=== PATIENT | female | born 1985 | race Caucasian/White ===

== ENCOUNTER 2017-05-11 11:03 | Emergency (ER) | payer MEDICAID ==
[~2017-05-11] VITALS: Ht 172.7 cm; Wt 106.6 kg
--- NOTE | 2017-05-11 11:56 | NUR ---
Patient discharged to home in stable conditon. Written and verbal after care instructions given. Patient verbalizes understanding of instructions.
[2017-05-11 12:00] VITALS: BP 125/78
== END 2017-05-11 12:01 | disposition home or self-care (01) ==
LOC: EDBD 11:03 → ER 11:03
DX: J02.8 Acute pharyngitis due to other specified organisms (principal); B97.89 Other viral agents as the cause of diseases classified elsewhere
CPT/HCPCS: A4663

== ENCOUNTER 2018-09-25 19:17 | Emergency (ER) | payer MEDICAID ==
[~2018-09-25] VITALS: Ht 172.7 cm; Wt 108.9 kg
[2018-09-25] MEDS ORDERED: IV NORMAL SALINE 1000 ML BAG IV ONE (19:45)
--- NOTE | 2018-09-25 19:55 | NUR ---
Patient ambulated with stable gait. A/Ox4. Speech is clear, speaks in complete sentences. No neuro deficits noted. Patient came for c/o abd pain x4 days and urinary retention. Denies any episodes of vomiting but does report having nausea.
--- NOTE | 2018-09-25 20:03 | NUR ---
patient transported down to CT in stable condition.
[2018-09-25 20:05] LABS: BASOPHILS % (AUTO) 0.2 % (0.0-2.0); EOSINOPHILS # (AUTO) 0.1 K/uL (0.0-0.7); EOSINOPHILS % (AUTO) 1.6 % (0.0-7.0); HEMATOCRIT 37.3 % (31.2-41.9); HEMOGLOBIN 12.1 g/dL (10.9-14.3); LYMPHOCYTES # (AUTO) 2.2 K/uL (20.0-40.0); LYMPHOCYTES % (AUTO) 27.5 % (20.5-51.5); MEAN CORPUSCULAR HGB CONC 33 g/dL (32.3-35.6); MEAN CORPUSCULAR VOLUME 73.7 fL (75.5-95.3); MONOCYTES # (AUTO) 0.6 K/uL (2.0-10.0); MONOCYTES % (AUTO) 7.4 % (0.0-11.0); NEUTROPHILS % (AUTO) 63.3 % (38.5-71.5); PLATELET COUNT (AUTO) 286 K/uL (179-408); RED BLOOD CELL COUNT(AUTO) 5.06 MIL/uL (3.63-4.92); WHITE BLOOD COUNT (AUTO) 7.9 K/uL (3.8-11.8)
--- NOTE | 2018-09-25 20:08 | NUR ---
Yuko gerard in EDM - 09/25/18 at 2016 by DHIRAJ Patient discharged to home in stable conditon. Written and verbal after care instructions given. Patient's father verbalizes understanding of instructions.
[2018-09-25 20:15] LABS: CARBON DIOXIDE 22 mmol/L (21-32); CHLORIDE 105 mmol/L (98-107); CREATININE 0.9 mg/dL (0.6-1.3); GLUCOSE 104 mg/dL (74-106); POTASSIUM 3.7 mmol/L (3.5-5.1); UREA NITROGEN, BLOOD 10 mg/dL (7-18)
[2018-09-25 20:20] LABS: ALANINE AMINOTRANSFERASE 41 U/L (14-59); ALKALINE PHOSPHATASE 126 U/L (50-136); ASPARTATE AMINOTRANSFERASE 43 U/L (15-37); BILIRUBIN,DIRECT 0.1 mg/dL (0.0-0.2); BILIRUBIN,TOTAL 0.3 mg/dL (0.2-1.0); LIPASE 53 U/L (73-393)
--- NOTE | 2018-09-25 20:24 | NUR ---
Patient back in room from CT
[2018-09-25 21:19] LABS: *BILIRUBIN,URIN NEGATIVE (NEGATIVE); *BLOOD, URINE NEGATIVE (NEGATIVE); *CLARITY,URINE CLEAR (CLEAR); *COLOR,URINE YELLOW (YELLOW); *KETONES,URINE NEGATIVE (NEGATIVE); *UROBILINOGEN,URINE 0.2 E.U./dl (NORMAL); LEUKOCYTE ESTERASE ,URINE NEGATIVE (NEGATIVE); NITRITE, URINE NEGATIVE (NEGATIVE); UGLUCOSE NEGATIVE (NEGATIVE)
[2018-09-25] MEDS ORDERED: KETOROLAC TROMETHAMINE 15 MG INJ IVP ONE (21:45)
[2018-09-25] MEDS ORDERED: METOCLOPRAMIDE HCL 10 MG/2 ML VIAL IV ONE (21:45)
[2018-09-25] MEDS ORDERED: KETOROLAC TROMETHAMINE 15 MG INJ ONE (21:47)
[2018-09-25] MEDS ORDERED: METOCLOPRAMIDE HCL 10 MG/2 ML VIAL ONE (21:47)
--- NOTE | 2018-09-25 22:52 | NUR ---
Patient discharged to home in stable conditon. Written and verbal after care instructions given. Patient verbalizes understanding of instructions. Patient ambulated with stable gait.
[2018-09-25 22:55] VITALS: BP 118/83
== END 2018-09-25 22:55 | disposition home or self-care (01) ==
LOC: ER 19:18
DX: A04.9 Bacterial intestinal infection, unspecified (principal)
CPT/HCPCS: 36415; 74176; 80048; 80076; 81001; 83690; 84484; 84702; 85025; 96361; 96374; 96375; 99284; J1885; J2765; 70030-TC; A4663; J7030

== ENCOUNTER → 2018-12-29 | Emergency (ER) | payer MEDICAID ==
[~2018-12-29] VITALS: Ht 172.7 cm; Wt 117.9 kg
[~2018-12-29] MED LIST: OXYCODONE/APAP 5-325 MG TABLET ONE
[2018-12-29] MEDS: OXYCODONE/APAP 5-325 MG TABLET PO ONE (01:13)
--- NOTE | 2018-12-29 01:47 | NUR ---
Patient discharged to home in stable conditon. Written and verbal after care instructions given. Patient verbalizes understanding of instructions. KNEE IMMOBILIZER PLACED, CSM INTACT, CRUTCH TRAINING DONE, REDEMONSTRATION DONE BY PATIENT.
[2018-12-29 01:48] VITALS: BP 135/78
== END | disposition home or self-care (01) ==
LOC: ER 00:51
DX: S83.91XA Sprain of unspecified site of right knee, initial encounter (principal); E03.9 Hypothyroidism, unspecified; X50.1XXA Overexertion from prolonged static or awkward postures, initial encounter; Y93.89 Activity, other specified; Y92.89 Other specified places as the place of occurrence of the external cause; Y99.8 Other external cause status
CPT/HCPCS: 73562; A4663

== ENCOUNTER 2020-08-14 22:16 | Emergency (ER) | payer MEDICAID ==
[~2020-08-14] VITALS: Ht 172.7 cm; Wt 117.9 kg
[2020-08-14] MEDS ORDERED: ONDANSETRON ODT 4 MG TAB.RAPDIS ONE (23:24)
[2020-08-14] MEDS ORDERED: HYDROMORPHONE 1 MG/1 ML DISP.SYRIN ONE (23:25)
[2020-08-14] MEDS: ONDANSETRON ODT 4 MG TAB.RAPDIS SL ONE (23:26)
[2020-08-14] MEDS: HYDROMORPHONE 1 MG/1 ML DISP.SYRIN IM ONE (23:27)
--- NOTE | 2020-08-14 23:27 | NUR ---
Xray at bedside
--- NOTE | 2020-08-14 23:52 | NUR ---
Ice pack applied with cloth covering to right extremity of patient to help alleviate pain.
[2020-08-15] MEDS ORDERED: HYDR-3980 PO (00:03)
[2020-08-15 00:37] VITALS: BP 118/82
== END 2020-08-15 00:15 | disposition home or self-care (01) ==
LOC: ER 22:18
DX: M25.561 Pain in right knee (principal); S89.91XA Unspecified injury of right lower leg, initial encounter; X50.0XXA Overexertion from strenuous movement or load, initial encounter; Y93.89 Activity, other specified; Y92.89 Other specified places as the place of occurrence of the external cause; E03.9 Hypothyroidism, unspecified
CPT/HCPCS: 29505; 73562; 96372; 99283; J1170; A4663; Q0162

== ENCOUNTER 2022-06-20 22:34 | Emergency (ER) | payer MEDICAID ==
[~2022-06-20] VITALS: Ht 172.7 cm; Wt 127.0 kg
[~2022-06-20 22:34] MED LIST changes: +HYDR-3980 PO; -OXYCODONE/APAP 5-325 MG TABLET ONE
--- NOTE | 2022-06-20 22:59 | NUR ---
Dr. Díaz at bedside. MSE in progress.
[2022-06-20] MEDS ORDERED: OFLO5DRO5 LEFT EAR (23:12)
[2022-06-20] MEDS ORDERED: HYDR-3980 PO (23:12)
--- NOTE | 2022-06-20 23:19 | NUR ---
Patient a/o x 4. NAD noted. Ambulatory with a steady gait. All belongings with patient. Patient discharged to home in stable condition. Written and verbal after care instructions given. Patient verbalizes understanding of instructions. Stressed follow up or return to ER for worsening s/s.
== END 2022-06-20 23:20 | disposition home or self-care (01) ==
LOC: ER 22:34
DX: H60.92 Unspecified otitis externa, left ear (principal); E66.01 Morbid (severe) obesity due to excess calories; E03.9 Hypothyroidism, unspecified; F17.210 Nicotine dependence, cigarettes, uncomplicated; Z68.41 Body mass index [BMI] 40.0-44.9, adult; Z79.2 Long term (current) use of antibiotics; Z79.899 Other long term (current) drug therapy
CPT/HCPCS: A4663